=== PATIENT | male | born 1975 | race Caucasian/White ===

== ENCOUNTER 2019-07-11 09:11 | Inpatient (IN) | payer MEDICAID, OTHER ==
[~2019-07-11] VITALS: Ht 175.3 cm; Wt 59.4 kg
[2019-07-11 10:50] LABS: BG BASE EXCESS -0.3 mmol/L (-2.0-2.0); BG CARBOXYHEMOGLOBIN 0.3 % (0.5-1.5); BG DEOXYHEMOGLOBIN 1.5 % (0.0-5.0); BG FRACTION INSPIRED OXYGEN 100; BG HCO3 ACT 21.8 mmol/L (22.0-26.0); BG OXYGEN SATURATION 98.5 % (92.0-98.5); BG OXYHEMOGLOBIN 97.2 % (94.0-97.0); BG PCO2 29.3 mmHg (35.0-45.0); BG PO2 172.4 mmHg (75.0-100.0); BG SAMPLE SITE RIGHT BRACHIAL; BG TOTAL HEMOGLOBIN 14.4 g/dL (12.0-18.0); BG VENT MODE MASK - NRB
[2019-07-11] MEDS ORDERED: LEVOFLOXACIN 750MG PREMIX 150 ML IV ONE (11:30)
[2019-07-11 11:45] LABS: HEMATOCRIT. 42.1 % (42.0-52.0); HEMOGLOBIN. 14.5 g/dL (14.0-18.0); MEAN CORPUSCULAR HEMOGLOBIN 31.5 pg (28.0-32.0); MEAN CORPUSCULAR VOLUME 91.8 fL (80.0-94.0); MEAN PLATELET VOLUME 8.8 fl (7.4-10.4); PLATELET 413 x1000/uL (130-400); RED BLOOD CELL COUNT 4.59 mill/uL (4.7-6.1); RED CELL DISTRIBUTION WIDTH 13.6 % (11.6-14.6)
[2019-07-11 11:50] LABS: CHLORIDE 97 mEq/L (98-107)
[2019-07-11 11:57] LABS: CREATINE KINASE 209 IU/L (39-308)
[2019-07-11 12:00] LABS: D-DIMER 0.99 mg/L FEU (<0.50); PROTHROMBIN TIME 10.6 sec (9.6-11.0)
[2019-07-11 12:47] LABS: FIBRINOGEN > 999 mg/dL (200-400)
[2019-07-11] MEDS ORDERED: ACETAMINOPHEN 325MG TABLET PO ONE (13:00)
[2019-07-11 13:06] LABS: PLATELET ESTIMATE SLIGHTLY INCREASED
[2019-07-11 14:00] VITALS: BP 112/79
[2019-07-11 14:04] LABS: CLARITY URINE CLEAR (CLEAR); COLOR URINE DARK YELLOW (YELLOW); KETONES URINE 2+ (NEGATIVE); LEUKOCYTE ESTERASE URINE NEGATIVE (NEGATIVE); NITRITE URINE NEGATIVE (NEGATIVE); OCCULT BLOOD URINE NEGATIVE (NEGATIVE); PH URINE 6.5 (4.5-8.0); PROTEIN URINE 2+ (NEGATIVE); SPECIFIC GRAVITY URINE 1.031 (1.005-1.030)
[2019-07-11] MEDS ORDERED: VANCOMYCIN 1 G PREMIX 200 ML IV SCH (14:45)
[2019-07-11] MEDS ORDERED: ACETAMINOPHEN 650MG SUPP PR PRN (14:45)
[2019-07-11] MEDS ORDERED: CLONIDINE 0.1MG TABLET PO PRN (14:45)
[2019-07-11] MEDS ORDERED: DIPHENHYDRAMINE 50MG/ML VIAL IV PRN (14:45)
[2019-07-11] MEDS ORDERED: NA PHOS,M-B/NA PHOS,DI-BA ENEMA 118ML PR PRN (14:45)
[2019-07-11] MEDS ORDERED: MAGNESIUM/ALUMINUM HYDROXIDE/SIMETHICONE 30ML UDC PO PRN (14:45)
[2019-07-11] MEDS ORDERED: DOCUSATE SODIUM 100MG CAPSULE PO PRN (14:45)
[2019-07-11 16:00] VITALS: BP 112/79
[2019-07-11] MEDS ORDERED: ENOXAPARIN 40MG/0.4ML SYR SUBCUT SCH ×2 (16:00→21:00)
[2019-07-11] MEDS: VANCOMYCIN 1 G PREMIX 200 ML IV SCH (17:13)
[2019-07-11 17:18] VITALS: BP 112/79
[2019-07-11] MEDS: PIPERACILLIN/TAZOBACTAM 3.375 G in DEXT 5% WATER 100 ML IV SCH (17:55)
[2019-07-11 18:11] VITALS: BP 112/79
[2019-07-11] MEDS ORDERED: DEXTROSE 50% WATER 50ML SYRINGE IV PRN (18:45)
[2019-07-11 20:00] VITALS: BP 88/68
[2019-07-11] MEDS: INSULIN LISPRO 100 UNITS/ML SUBCUT SCH (20:45)
[2019-07-11] MEDS: BLOOD SUGAR DIAGNOSTIC STRIP TEST SCH (20:47)
[2019-07-11 21:21] LABS: BG BASE EXCESS -1.8 mmol/L (-2.0-2.0); BG CARBOXYHEMOGLOBIN 0.3 % (0.5-1.5); BG DEOXYHEMOGLOBIN 0.8 % (0.0-5.0); BG FRACTION INSPIRED OXYGEN 100; BG HCO3 ACT 20.6 mmol/L (22.0-26.0); BG OXYGEN SATURATION 99.2 % (92.0-98.5); BG OXYHEMOGLOBIN 98.9 % (94.0-97.0); BG PH 7.469 (7.350-7.450); BG PO2 245.1 mmHg (75.0-100.0); BG SAMPLE SITE LEFT BRACHIAL; BG TOTAL HEMOGLOBIN 14.4 g/dL (12.0-18.0); BG VENT MODE MASK - NRB
[2019-07-11] MEDS: ENOXAPARIN 60MG/0.6ML SYR SUBCUT SCH (22:39)
[2019-07-11] MEDS: SODIUM CHLORIDE 0.45% 1,000 ML IV SCH (22:39)
[2019-07-12] VITALS (16 sets, daily range): BP systolic 102–126; BP diastolic 59–87
[2019-07-12] MEDS: PIPERACILLIN/TAZOBACTAM 3.375 G in DEXT 5% WATER 100 ML IV SCH ×3 (00:34→16:45)
[2019-07-12] MEDS: ACETAMINOPHEN 325MG TABLET PO PRN (03:02)
[2019-07-12] MEDS: VANCOMYCIN 1 G PREMIX 200 ML IV SCH ×3 (03:02→23:00)
[2019-07-12] MEDS: MORPHINE SULFATE 2 MG/ML CPJ (NOT FOR IM USE) IV PRN (03:16)
[2019-07-12 05:02] LABS: HEMATOCRIT. 36.7 % (42.0-52.0); HEMOGLOBIN. 12.8 g/dL (14.0-18.0); MEAN CORPUSCULAR VOLUME 91.3 fL (80.0-94.0); MEAN PLATELET VOLUME 8.4 fl (7.4-10.4); PLATELET 446 x1000/uL (130-400); RED BLOOD CELL COUNT 4.02 mill/uL (4.7-6.1); RED CELL DISTRIBUTION WIDTH 13.7 % (11.6-14.6)
[2019-07-12 05:14] LABS: CHLORIDE 99 mEq/L (98-107)
[2019-07-12 05:19] LABS: LDL CHOLESTEROL 92 mg/dL (5-100)
[2019-07-12 05:21] LABS: HDL CHOLESTEROL 9 mg/dL (40-59)
[2019-07-12] MEDS: BLOOD SUGAR DIAGNOSTIC STRIP TEST SCH (06:26)
[2019-07-12] MEDS: INSULIN LISPRO 100 UNITS/ML SUBCUT SCH (06:26)
[2019-07-12 08:21] LABS: PLATELET ESTIMATE INCREASED
[2019-07-12 08:55] LABS: BG BASE EXCESS -3.1 mmol/L (-2.0-2.0); BG CARBOXYHEMOGLOBIN 0.5 % (0.5-1.5); BG DEOXYHEMOGLOBIN 11.7 % (0.0-5.0); BG FRACTION INSPIRED OXYGEN 68; BG HCO3 ACT 21.5 mmol/L (22.0-26.0); BG METHEMOGLOBIN 0.2 % (0.0-1.5); BG OXYGEN SATURATION 88.2 % (92.0-98.5); BG OXYHEMOGLOBIN 87.6 % (94.0-97.0); BG PCO2 37.1 mmHg (35.0-45.0); BG PH 7.381 (7.350-7.450); BG PO2 54.5 mmHg (75.0-100.0); BG SAMPLE SITE RIGHT RADIAL; BG TOTAL HEMOGLOBIN 13.4 g/dL (12.0-18.0); BG VENT MODE MASK - SIMPLE
[2019-07-12] MEDS ORDERED: POTASSIUM CHLORIDE INJ 40 MEQ in DEXT 5% WATER 500 ML IV NR (09:00)
[2019-07-12] MEDS: ENOXAPARIN 60MG/0.6ML SYR SUBCUT SCH ×2 (09:39→22:25)
[2019-07-12 09:50] LABS: *AMPHETAMINES SCREEN URINE NEGATIVE (NEGATIVE); CANNABINOID URINE SCREEN NEGATIVE (NEGATIVE); PHENCYCLIDINE URINE SCREEN NEGATIVE (NEGATIVE)
[2019-07-12 09:51] LABS: *BARBITURATES SCREEN URINE NEGATIVE (NEGATIVE); *BENZODIAZEPINES SCREEN URINE PRESUMTIVE POSITIVE (NEGATIVE); *COCAINE SCREEN URINE NEGATIVE (NEGATIVE); METHADONE URINE SCREEN NEGATIVE (NEGATIVE); OPIATES URINE SCREEN NEGATIVE (NEGATIVE)
[2019-07-12] MEDS: SODIUM CHLORIDE 0.45% 1,000 ML IV SCH (11:35)
[2019-07-12] MEDS: AZITHROMYCIN 500 MG TABLET PO SCH (12:38)
[2019-07-13] VITALS (7 sets, daily range): BP systolic 111–145; BP diastolic 67–89
[2019-07-13] MEDS: SODIUM CHLORIDE 0.45% 1,000 ML IV SCH (01:21)
[2019-07-13] MEDS: PIPERACILLIN/TAZOBACTAM 3.375 G in DEXT 5% WATER 100 ML IV SCH ×2 (01:44→08:28)
[2019-07-13] MEDS: ALBUTEROL 6.7GM HFA INHALER ORI PRN ×2 (05:14→11:38)
[2019-07-13 05:15] LABS: CHLORIDE 103 mEq/L (98-107)
[2019-07-13 05:22] LABS: VANCOMYCIN TROUGH 19.5 ug/mL (5.0-10.0)
[2019-07-13] MEDS: VANCOMYCIN 1 G PREMIX 200 ML IV SCH ×2 (06:23→14:46)
[2019-07-13] MEDS: AZITHROMYCIN 500 MG TABLET PO SCH (08:29)
[2019-07-13] MEDS: ENOXAPARIN 60MG/0.6ML SYR SUBCUT SCH (08:29)
[2019-07-13] MEDS ORDERED: POTASSIUM CHLORIDE 20MEQ TABLET SR PO PRN (11:45)
[2019-07-13] MEDS: HYDROCODONE/ACETAMINOPHEN 5/325MG TABLET PO PRN (14:50)
[2019-07-13] MEDS ORDERED: PIPERACILLIN/TAZOBACTAM 3.375 G in DEXT 5% WATER 100 ML IV SCH (15:00)
[2019-07-13] MEDS: LORAZEPAM 2MG/ML CPJ IV PRN ×2 (18:06→22:17)
[2019-07-13] MEDS: ACETAMINOPHEN 325MG TABLET PO PRN ×2 (18:06→22:17)
[2019-07-13] MEDS: ALBUTEROL 6.7GM HFA INHALER ORI SCH (18:19)
[2019-07-13] MEDS: CEFTRIAXONE 1 G PREMIX 50 ML IV SCH (20:42)
[2019-07-13] MEDS: ENOXAPARIN 80MG/0.8ML SYR SUBCUT SCH (20:42)
[2019-07-14] VITALS (68 sets, daily range): BP systolic 111–179; BP diastolic 43–106
[2019-07-14 00:24] LABS: BG BASE EXCESS -2.2 mmol/L (-2.0-2.0); BG CARBOXYHEMOGLOBIN 0.6 % (0.5-1.5); BG DEOXYHEMOGLOBIN 7.9 % (0.0-5.0); BG FRACTION INSPIRED OXYGEN 100; BG HCO3 ACT 21.1 mmol/L (22.0-26.0); BG METHEMOGLOBIN 0.1 % (0.0-1.5); BG OXYHEMOGLOBIN 91.4 % (94.0-97.0); BG PCO2 32.5 mmHg (35.0-45.0); BG PO2 66.1 mmHg (75.0-100.0); BG SAMPLE SITE RIGHT RADIAL; BG VENT MODE MASK - NRB
[2019-07-14] MEDS: ALBUTEROL 6.7GM HFA INHALER ORI SCH ×4 (00:37→21:30)
[2019-07-14] MEDS: AZITHROMYCIN 500 MG TABLET PO SCH (08:21)
[2019-07-14] MEDS: METHYLPREDNISOLONE SOD SUCC 40 MG/ML VIAL IV SCH ×2 (08:21→16:07)
[2019-07-14] MEDS: MORPHINE SULFATE 2 MG/ML CPJ (NOT FOR IM USE) IV PRN (08:32)
[2019-07-14] MEDS: ENOXAPARIN 80MG/0.8ML SYR SUBCUT SCH ×2 (09:24→20:54)
[2019-07-14] MEDS: ACETAMINOPHEN 325MG TABLET PO PRN (13:21)
[2019-07-14] MEDS ORDERED: REMDESIVIR 200 MG in SODIUM CHLORIDE 0.9% 250 ML IV NR (14:00)
[2019-07-14] MEDS: CEFTRIAXONE 1 G PREMIX 50 ML IV SCH (20:54)
[2019-07-15] VITALS (38 sets, daily range): BP systolic 102–162; BP diastolic 48–91
[2019-07-15] MEDS: GUAIFENESIN 200MG/10ML SUGAR FREE UDC PO PRN (01:40)
[2019-07-15] MEDS: ALBUTEROL 6.7GM HFA INHALER ORI SCH ×3 (03:30→15:59)
[2019-07-15 05:49] LABS: HEMOGLOBIN. 13.1 g/dL (14.0-18.0); MEAN CORPUSCULAR HEMOGLOBIN 31.8 pg (28.0-32.0); MEAN CORPUSCULAR VOLUME 92.2 fL (80.0-94.0); MEAN PLATELET VOLUME 8.4 fl (7.4-10.4); PLATELET 358 x1000/uL (130-400); RED BLOOD CELL COUNT 4.12 mill/uL (4.7-6.1); RED CELL DISTRIBUTION WIDTH 13.8 % (11.6-14.6)
[2019-07-15 06:01] LABS: CHLORIDE 107 mEq/L (98-107)
[2019-07-15] MEDS: METHYLPREDNISOLONE SOD SUCC 40 MG/ML VIAL IV SCH ×2 (08:14→18:48)
[2019-07-15] MEDS: ENOXAPARIN 80MG/0.8ML SYR SUBCUT SCH ×2 (08:15→20:44)
[2019-07-15] MEDS: AZITHROMYCIN 500 MG TABLET PO SCH (08:17)
[2019-07-15 08:52] LABS: PLATELET ESTIMATE NORMAL
[2019-07-15 10:55] LABS: BG BASE EXCESS -0.9 mmol/L (-2.0-2.0); BG CARBOXYHEMOGLOBIN 0.7 % (0.5-1.5); BG DEOXYHEMOGLOBIN 9.2 % (0.0-5.0); BG FRACTION INSPIRED OXYGEN 100; BG HCO3 ACT 22.6 mmol/L (22.0-26.0); BG METHEMOGLOBIN 0.3 % (0.0-1.5); BG OXYGEN SATURATION 90.7 % (92.0-98.5); BG OXYHEMOGLOBIN 89.8 % (94.0-97.0); BG PH 7.441 (7.350-7.450); BG PO2 58.1 mmHg (75.0-100.0); BG SAMPLE SITE RIGHT RADIAL; BG TOTAL HEMOGLOBIN 13.6 g/dL (12.0-18.0); BG VENT MODE MASK - NRB
[2019-07-15] MEDS: REMDESIVIR 100 MG in SODIUM CHLORIDE 0.9% 250 ML IV SCH (13:23)
[2019-07-15] MEDS: HYDROCODONE/ACETAMINOPHEN 5/325MG TABLET PO PRN (13:51)
[2019-07-15] MEDS: CEFTRIAXONE 1 G PREMIX 50 ML IV SCH (20:43)
[2019-07-16] VITALS (44 sets, daily range): BP systolic 99–143; BP diastolic 50–83
[2019-07-16 05:11] LABS: CHLORIDE 108 mEq/L (98-107)
[2019-07-16] MEDS: AZITHROMYCIN 500 MG TABLET PO SCH (08:53)
[2019-07-16] MEDS: ENOXAPARIN 80MG/0.8ML SYR SUBCUT SCH ×2 (08:53→20:22)
[2019-07-16] MEDS: METHYLPREDNISOLONE SOD SUCC 40 MG/ML VIAL IV SCH ×2 (08:54→17:06)
[2019-07-16] MEDS: ALBUTEROL 6.7GM HFA INHALER ORI SCH ×3 (09:10→21:15)
[2019-07-16] MEDS: REMDESIVIR 100 MG in SODIUM CHLORIDE 0.9% 250 ML IV SCH (13:39)
[2019-07-16] MEDS: CEFTRIAXONE 1 G PREMIX 50 ML IV SCH (20:22)
[2019-07-16] MEDS: HYDROCODONE/ACETAMINOPHEN 5/325MG TABLET PO PRN (20:33)
[2019-07-17] VITALS (35 sets, daily range): BP systolic 99–158; BP diastolic 52–131
[2019-07-17] MEDS: ALBUTEROL 6.7GM HFA INHALER ORI SCH ×6 (00:25→20:43)
[2019-07-17 05:36] LABS: CHLORIDE 107 mEq/L (98-107)
[2019-07-17] MEDS: LORAZEPAM 2MG/ML CPJ IV PRN (06:07)
[2019-07-17] MEDS: GUAIFENESIN 200MG/10ML SUGAR FREE UDC PO PRN (06:13)
[2019-07-17 08:04] LABS: BG BASE EXCESS -0.6 mmol/L (-2.0-2.0); BG CARBOXYHEMOGLOBIN 0.2 % (0.5-1.5); BG DEOXYHEMOGLOBIN 10.5 % (0.0-5.0); BG FRACTION INSPIRED OXYGEN 100; BG OXYGEN SATURATION 89.5 % (92.0-98.5); BG OXYHEMOGLOBIN 89.3 % (94.0-97.0); BG PCO2 39.2 mmHg (35.0-45.0); BG PH 7.404 (7.350-7.450); BG PO2 59.1 mmHg (75.0-100.0); BG SAMPLE SITE RIGHT RADIAL; BG TOTAL HEMOGLOBIN 14.3 g/dL (12.0-18.0); BG VENT MODE MASK - NRB
[2019-07-17] MEDS: ENOXAPARIN 80MG/0.8ML SYR SUBCUT SCH ×2 (08:25→20:07)
[2019-07-17] MEDS: METHYLPREDNISOLONE SOD SUCC 40 MG/ML VIAL IV SCH ×2 (08:25→17:36)
[2019-07-17] MEDS: REMDESIVIR 100 MG in SODIUM CHLORIDE 0.9% 250 ML IV SCH (13:59)
[2019-07-17] MEDS: GUAIFENESIN-DM 200MG-20MG/10ML UDC PO PRN ×2 (14:46→22:12)
[2019-07-17] MEDS: CEFTRIAXONE 1 G PREMIX 50 ML IV SCH (20:07)
[2019-07-17] MEDS: HYDROCODONE/ACETAMINOPHEN 5/325MG TABLET PO PRN (22:13)
[2019-07-18] VITALS (23 sets, daily range): BP systolic 95–133; BP diastolic 50–95
[2019-07-18] MEDS: LORAZEPAM 2MG/ML CPJ IV PRN (00:44)
[2019-07-18] MEDS: ALBUTEROL 6.7GM HFA INHALER ORI SCH ×6 (00:55→20:40)
[2019-07-18] MEDS: GUAIFENESIN-DM 200MG-20MG/10ML UDC PO PRN ×3 (05:58→17:10)
[2019-07-18] MEDS: HYDROCODONE/ACETAMINOPHEN 5/325MG TABLET PO PRN (05:59)
[2019-07-18 06:02] LABS: CHLORIDE 104 mEq/L (98-107)
[2019-07-18 08:26] LABS: BG BASE EXCESS 2.9 mmol/L (-2.0-2.0); BG CARBOXYHEMOGLOBIN 0.3 % (0.5-1.5); BG DEOXYHEMOGLOBIN 9.3 % (0.0-5.0); BG HCO3 ACT 27.2 mmol/L (22.0-26.0); BG METHEMOGLOBIN 0.3 % (0.0-1.5); BG OXYGEN SATURATION 90.6 % (92.0-98.5); BG OXYHEMOGLOBIN 90.1 % (94.0-97.0); BG PCO2 40.9 mmHg (35.0-45.0); BG PH 7.441 (7.350-7.450); BG PO2 60.7 mmHg (75.0-100.0); BG SAMPLE SITE RIGHT RADIAL; BG TOTAL HEMOGLOBIN 14.1 g/dL (12.0-18.0); BG VENT MODE MASK - NRB
[2019-07-18] MEDS: METHYLPREDNISOLONE SOD SUCC 40 MG/ML VIAL IV SCH ×2 (09:51→17:10)
[2019-07-18] MEDS: ENOXAPARIN 80MG/0.8ML SYR SUBCUT SCH ×2 (09:52→20:51)
[2019-07-18] MEDS: ACETAMINOPHEN 325MG TABLET PO PRN ×2 (13:04→18:42)
[2019-07-18] MEDS: REMDESIVIR 100 MG in SODIUM CHLORIDE 0.9% 250 ML IV SCH (14:44)
[2019-07-18] MEDS ORDERED: SODIUM CHLORIDE 45ML SPRAY NS PRN (17:30)
[2019-07-19] VITALS (19 sets, daily range): BP systolic 92–133; BP diastolic 55–78
[2019-07-19] MEDS: ALBUTEROL 6.7GM HFA INHALER ORI SCH ×6 (00:50→20:14)
[2019-07-19 05:40] LABS: HEMATOCRIT. 41.9 % (42.0-52.0); HEMOGLOBIN. 14.2 g/dL (14.0-18.0); MEAN CORPUSCULAR HEMOGLOBIN 31.4 pg (28.0-32.0); MEAN CORPUSCULAR VOLUME 92.9 fL (80.0-94.0); MEAN PLATELET VOLUME 8.9 fl (7.4-10.4); PLATELET 450 x1000/uL (130-400); RED BLOOD CELL COUNT 4.51 mill/uL (4.7-6.1)
[2019-07-19] MEDS: GUAIFENESIN-DM 200MG-20MG/10ML UDC PO PRN ×4 (05:46→22:29)
[2019-07-19 05:54] LABS: CHLORIDE 105 mEq/L (98-107)
[2019-07-19] MEDS: HYDROCODONE/ACETAMINOPHEN 5/325MG TABLET PO PRN (06:16)
[2019-07-19 07:54] LABS: BG BASE EXCESS 0.8 mmol/L (-2.0-2.0); BG CARBOXYHEMOGLOBIN 0.8 % (0.5-1.5); BG HCO3 ACT 24.9 mmol/L (22.0-26.0); BG METHEMOGLOBIN 0.2 % (0.0-1.5); BG OXYGEN SATURATION 89.9 % (92.0-98.5); BG PCO2 38.2 mmHg (35.0-45.0); BG PH 7.432 (7.350-7.450); BG PO2 58.8 mmHg (75.0-100.0); BG SAMPLE SITE RIGHT RADIAL; BG TOTAL HEMOGLOBIN 15.1 g/dL (12.0-18.0); BG VENT MODE MASK - NRB
[2019-07-19] MEDS: METHYLPREDNISOLONE SOD SUCC 40 MG/ML VIAL IV SCH ×2 (09:21→16:47)
[2019-07-19] MEDS: ENOXAPARIN 80MG/0.8ML SYR SUBCUT SCH (09:22)
[2019-07-19 10:06] LABS: PLATELET ESTIMATE SLIGHTLY INCREASED
[2019-07-19] MEDS: ENOXAPARIN 60MG/0.6ML SYR SUBCUT SCH (20:28)
[2019-07-20] VITALS (22 sets, daily range): BP systolic 91–128; BP diastolic 31–71
[2019-07-20] MEDS: ALBUTEROL 6.7GM HFA INHALER ORI SCH ×6 (00:05→21:55)
[2019-07-20] MEDS: GUAIFENESIN-DM 200MG-20MG/10ML UDC PO PRN ×2 (03:05→07:31)
[2019-07-20] MEDS: HYDROCODONE/ACETAMINOPHEN 5/325MG TABLET PO PRN ×3 (03:05→20:58)
[2019-07-20] MEDS: METHYLPREDNISOLONE SOD SUCC 40 MG/ML VIAL IV SCH ×2 (08:27→17:00)
[2019-07-20] MEDS: ENOXAPARIN 60MG/0.6ML SYR SUBCUT SCH ×2 (08:27→20:58)
[2019-07-20 09:38] LABS: BG BASE EXCESS -0.6 mmol/L (-2.0-2.0); BG CARBOXYHEMOGLOBIN 0.8 % (0.5-1.5); BG DEOXYHEMOGLOBIN 7.7 % (0.0-5.0); BG FRACTION INSPIRED OXYGEN 99.8; BG HCO3 ACT 23.3 mmol/L (22.0-26.0); BG METHEMOGLOBIN 0.2 % (0.0-1.5); BG OXYGEN SATURATION 92.2 % (92.0-98.5); BG OXYHEMOGLOBIN 91.3 % (94.0-97.0); BG PCO2 36.3 mmHg (35.0-45.0); BG PH 7.425 (7.350-7.450); BG PO2 65.6 mmHg (75.0-100.0); BG SAMPLE SITE RIGHT RADIAL; BG TOTAL HEMOGLOBIN 15.9 g/dL (12.0-18.0); BG VENT MODE MASK - NRB
[2019-07-21] VITALS (20 sets, daily range): BP systolic 96–126; BP diastolic 49–83
[2019-07-21] MEDS: ALBUTEROL 6.7GM HFA INHALER ORI SCH ×6 (00:10→20:15)
[2019-07-21] MEDS: GUAIFENESIN-DM 200MG-20MG/10ML UDC PO PRN ×2 (05:23→21:03)
[2019-07-21] MEDS: HYDROCODONE/ACETAMINOPHEN 5/325MG TABLET PO PRN ×2 (05:23→21:03)
[2019-07-21] MEDS: ENOXAPARIN 60MG/0.6ML SYR SUBCUT SCH ×2 (08:37→20:40)
[2019-07-21] MEDS: METHYLPREDNISOLONE SOD SUCC 40 MG/ML VIAL IV SCH ×2 (08:37→17:53)
[2019-07-22] VITALS (21 sets, daily range): BP systolic 93–155; BP diastolic 33–102
[2019-07-22] MEDS: ALBUTEROL 6.7GM HFA INHALER ORI SCH ×6 (00:55→21:15)
[2019-07-22] MEDS: ENOXAPARIN 60MG/0.6ML SYR SUBCUT SCH ×2 (08:37→20:47)
[2019-07-22] MEDS: METHYLPREDNISOLONE SOD SUCC 40 MG/ML VIAL IV SCH (08:37)
[2019-07-22 11:44] LABS: BG CARBOXYHEMOGLOBIN 0.9 % (0.5-1.5); BG DEOXYHEMOGLOBIN 10.5 % (0.0-5.0); BG FRACTION INSPIRED OXYGEN 99.8; BG HCO3 ACT 27.7 mmol/L (22.0-26.0); BG METHEMOGLOBIN 0.3 % (0.0-1.5); BG OXYGEN SATURATION 89.4 % (92.0-98.5); BG OXYHEMOGLOBIN 88.3 % (94.0-97.0); BG PCO2 42.8 mmHg (35.0-45.0); BG PH 7.429 (7.350-7.450); BG PO2 55.5 mmHg (75.0-100.0); BG SAMPLE SITE RIGHT RADIAL; BG TOTAL HEMOGLOBIN 15.5 g/dL (12.0-18.0); BG VENT MODE MASK - NRB
[2019-07-22] MEDS: GUAIFENESIN-DM 200MG-20MG/10ML UDC PO PRN (20:47)
[2019-07-22] MEDS: HYDROCODONE/ACETAMINOPHEN 5/325MG TABLET PO PRN (20:47)
[2019-07-23] VITALS (20 sets, daily range): BP systolic 94–134; BP diastolic 47–99
[2019-07-23] MEDS: ALBUTEROL 6.7GM HFA INHALER ORI SCH ×4 (00:55→21:00)
[2019-07-23] MEDS: ENOXAPARIN 60MG/0.6ML SYR SUBCUT SCH ×2 (10:42→20:03)
[2019-07-23] MEDS: METHYLPREDNISOLONE SOD SUCC 40 MG/ML VIAL IV SCH (10:47)
[2019-07-23] MEDS: GUAIFENESIN-DM 200MG-20MG/10ML UDC PO PRN (20:02)
[2019-07-23] MEDS: HYDROCODONE/ACETAMINOPHEN 5/325MG TABLET PO PRN (20:03)
[2019-07-24] VITALS (52 sets, daily range): BP systolic 73–159; BP diastolic 26–116
[2019-07-24] MEDS: ALBUTEROL 6.7GM HFA INHALER ORI SCH ×5 (00:10→20:00)
[2019-07-24] MEDS: GUAIFENESIN-DM 200MG-20MG/10ML UDC PO PRN (06:43)
[2019-07-24] MEDS ORDERED: PHENYLEPHRINE 40 MG in DEXT 5% WATER 246 ML IV PRN (09:30)
[2019-07-24] MEDS: METHYLPREDNISOLONE SOD SUCC 40 MG/ML VIAL IV SCH (09:37)
[2019-07-24] MEDS: ENOXAPARIN 60MG/0.6ML SYR SUBCUT SCH ×2 (09:38→21:38)
[2019-07-24] MEDS: PANTOPRAZOLE SODIUM 40 MG/VIAL IV SCH (10:30)
[2019-07-24] MEDS ORDERED: NOREPINEPHRINE 32 MG in DEXT 5% WATER 468 ML IV PRN (10:30)
[2019-07-24] MEDS: MIDAZOLAM HCL 100 MG in DEXT 5% WATER 80 ML IV PRN ×2 (11:16→17:02)
[2019-07-24] MEDS: FENTANYL CITRATE/PF 1,000 MCG in SODIUM CHLORIDE 0.9% 80 ML IV PRN ×2 (11:17→15:27)
[2019-07-24 11:57] LABS: BG BASE EXCESS 3.9 mmol/L (-2.0-2.0); BG CARBOXYHEMOGLOBIN 0.6 % (0.5-1.5); BG DEOXYHEMOGLOBIN 7.3 % (0.0-5.0); BG FRACTION INSPIRED OXYGEN 100; BG HCO3 ACT 31.3 mmol/L (22.0-26.0); BG METHEMOGLOBIN 0.4 % (0.0-1.5); BG OXYGEN SATURATION 92.6 % (92.0-98.5); BG OXYHEMOGLOBIN 91.7 % (94.0-97.0); BG PCO2 57.4 mmHg (35.0-45.0); BG PH 7.355 (7.350-7.450); BG PO2 70.4 mmHg (75.0-100.0); BG SAMPLE SITE RIGHT RADIAL; BG TIDAL VOLUME(mL) 450 mL; BG TOTAL HEMOGLOBIN 16.8 g/dL (12.0-18.0); BG VENT MODE VENT - A/C; BG VENT RATE 18 set
[2019-07-24] MEDS: LORAZEPAM 2MG/ML CPJ IV PRN (12:47)
[2019-07-24 13:07] LABS: CHLORIDE 99 mEq/L (98-107)
[2019-07-24 13:12] LABS: PHOSPHORUS 5.8 mg/dL (2.5-4.9)
[2019-07-24] MEDS ORDERED: LIDOCAINE HCL 1% 20ML VIAL (Pyxis) INJ ONE (13:12)
[2019-07-24 13:14] LABS: HEMATOCRIT. 46.7 % (42.0-52.0); MEAN CORPUSCULAR VOLUME 93.3 fL (80.0-94.0); MEAN PLATELET VOLUME 9.1 fl (7.4-10.4); PLATELET 615 x1000/uL (130-400); RED BLOOD CELL COUNT 5.01 mill/uL (4.7-6.1)
[2019-07-24 13:39] LABS: PLATELET ESTIMATE INCREASED
[2019-07-24] MEDS ORDERED: MAGNESIUM 4 G PREMIX 100 ML IV NR (18:00)
[2019-07-25] VITALS (87 sets, daily range): BP systolic 73–140; BP diastolic 39–74
[2019-07-25] MEDS: ALBUTEROL 6.7GM HFA INHALER ORI SCH ×7 (00:30→20:30)
[2019-07-25] MEDS: FENTANYL CITRATE/PF 1,000 MCG in SODIUM CHLORIDE 0.9% 80 ML IV PRN ×3 (00:44→23:57)
[2019-07-25 08:31] LABS: BG BASE EXCESS 2.5 mmol/L (-2.0-2.0); BG CARBOXYHEMOGLOBIN 0.5 % (0.5-1.5); BG FRACTION INSPIRED OXYGEN 100; BG HCO3 ACT 28.2 mmol/L (22.0-26.0); BG METHEMOGLOBIN 0.6 % (0.0-1.5); BG OXYHEMOGLOBIN 97.9 % (94.0-97.0); BG PCO2 46.6 mmHg (35.0-45.0); BG PH 7.399 (7.350-7.450); BG PO2 146.3 mmHg (75.0-100.0); BG SAMPLE SITE RIGHT RADIAL; BG TIDAL VOLUME(mL) 450 mL; BG TOTAL HEMOGLOBIN 16.6 g/dL (12.0-18.0); BG VENT MODE VENT - A/C; BG VENT RATE 18 set
[2019-07-25] MEDS: MIDAZOLAM HCL 100 MG in DEXT 5% WATER 80 ML IV PRN (08:59)
[2019-07-25] MEDS: METHYLPREDNISOLONE SOD SUCC 40 MG/ML VIAL IV SCH (09:52)
[2019-07-25] MEDS: PANTOPRAZOLE SODIUM 40 MG/VIAL IV SCH (09:52)
[2019-07-25] MEDS: ENOXAPARIN 60MG/0.6ML SYR SUBCUT SCH ×2 (09:53→21:14)
[2019-07-25] MEDS: CEFEPIME 1,000 MG in DEXTROSE 5% WATER 50 ML IV SCH (15:35)
[2019-07-26] VITALS (47 sets, daily range): BP systolic 88–176; BP diastolic 6–99
[2019-07-26] MEDS: ALBUTEROL 6.7GM HFA INHALER ORI SCH ×2 (00:50→04:30)
[2019-07-26] MEDS: CEFEPIME 1,000 MG in DEXTROSE 5% WATER 50 ML IV SCH ×2 (03:14→14:37)
[2019-07-26 05:25] LABS: HEMATOCRIT. 41.6 % (42.0-52.0); MEAN CORPUSCULAR HEMOGLOBIN 31.5 pg (28.0-32.0); MEAN CORPUSCULAR VOLUME 93.7 fL (80.0-94.0); MEAN PLATELET VOLUME 9.2 fl (7.4-10.4); PLATELET 459 x1000/uL (130-400); RED BLOOD CELL COUNT 4.44 mill/uL (4.7-6.1); RED CELL DISTRIBUTION WIDTH 13.8 % (11.6-14.6)
[2019-07-26 05:32] LABS: CHLORIDE 100 mEq/L (98-107)
[2019-07-26 05:40] LABS: PHOSPHORUS 3.3 mg/dL (2.5-4.9)
[2019-07-26 08:11] LABS: BG BASE EXCESS 5.8 mmol/L (-2.0-2.0); BG CARBOXYHEMOGLOBIN 1.1 % (0.5-1.5); BG DEOXYHEMOGLOBIN 3.4 % (0.0-5.0); BG FRACTION INSPIRED OXYGEN 70; BG HCO3 ACT 33.1 mmol/L (22.0-26.0); BG METHEMOGLOBIN 0.4 % (0.0-1.5); BG OXYGEN SATURATION 96.5 % (92.0-98.5); BG OXYHEMOGLOBIN 95.1 % (94.0-97.0); BG PCO2 58.5 mmHg (35.0-45.0); BG PO2 85.4 mmHg (75.0-100.0); BG SAMPLE SITE RIGHT RADIAL; BG TIDAL VOLUME(mL) 450 mL; BG TOTAL HEMOGLOBIN 14.9 g/dL (12.0-18.0); BG VENT MODE VENT - A/C; BG VENT RATE 18 set
[2019-07-26] MEDS: PANTOPRAZOLE SODIUM 40 MG/VIAL IV SCH (09:21)
[2019-07-26] MEDS: ENOXAPARIN 60MG/0.6ML SYR SUBCUT SCH ×2 (09:21→21:27)
[2019-07-26 09:33] LABS: PLATELET ESTIMATE SLIGHTLY INCREASED
[2019-07-26] MEDS: ACETAMINOPHEN 650MG/20.3ML UDC GT PRN (14:38)
[2019-07-26] MEDS ORDERED: AMIODARONE HCL 900 MG in DEXT 5% WATER 482 ML IV SCH (15:00)
[2019-07-26] MEDS ORDERED: DEXTROSE 50% WATER 50ML SYRINGE IV ONE (15:47)
[2019-07-26 21:43] LABS: BG BASE EXCESS 5.2 mmol/L (-2.0-2.0); BG FRACTION INSPIRED OXYGEN 70; BG HCO3 ACT 32.7 mmol/L (22.0-26.0); BG METHEMOGLOBIN 0.4 % (0.0-1.5); BG OXYHEMOGLOBIN 97.6 % (94.0-97.0); BG PCO2 60.4 mmHg (35.0-45.0); BG PH 7.351 (7.350-7.450); BG PO2 153.3 mmHg (75.0-100.0); BG SAMPLE SITE RIGHT RADIAL; BG TIDAL VOLUME(mL) 450 mL; BG TOTAL HEMOGLOBIN 14.4 g/dL (12.0-18.0); BG VENT MODE PRVC/AC; BG VENT RATE 18 set
[2019-07-27] VITALS (97 sets, daily range): BP systolic 77–174; BP diastolic 38–94
[2019-07-27] MEDS: MIDAZOLAM HCL 100 MG in DEXT 5% WATER 80 ML IV PRN ×2 (04:22→14:20)
[2019-07-27] MEDS: CEFEPIME 1,000 MG in DEXTROSE 5% WATER 50 ML IV SCH ×2 (04:36→15:49)
[2019-07-27] MEDS: FENTANYL CITRATE/PF 1,000 MCG in SODIUM CHLORIDE 0.9% 80 ML IV PRN ×2 (07:04→15:51)
[2019-07-27] MEDS: ENOXAPARIN 60MG/0.6ML SYR SUBCUT SCH ×2 (09:00→20:52)
[2019-07-27] MEDS: PANTOPRAZOLE SODIUM 40 MG/VIAL IV SCH (09:00)
[2019-07-27] MEDS: ALBUTEROL 6.7GM HFA INHALER ORI SCH ×5 (09:05→21:15)
[2019-07-27 09:13] LABS: BG BASE EXCESS 6.7 mmol/L (-2.0-2.0); BG CARBOXYHEMOGLOBIN 0.8 % (0.5-1.5); BG DEOXYHEMOGLOBIN 2.5 % (0.0-5.0); BG FRACTION INSPIRED OXYGEN 60; BG HCO3 ACT 33.2 mmol/L (22.0-26.0); BG METHEMOGLOBIN 0.5 % (0.0-1.5); BG OXYGEN SATURATION 97.5 % (92.0-98.5); BG OXYHEMOGLOBIN 96.2 % (94.0-97.0); BG PCO2 54.8 mmHg (35.0-45.0); BG SAMPLE SITE RIGHT RADIAL; BG TIDAL VOLUME(mL) 450 mL; BG TOTAL HEMOGLOBIN 14.2 g/dL (12.0-18.0); BG VENT MODE VENT- PRVC; BG VENT RATE 20 set
[2019-07-27] MEDS ORDERED: PHENYLEPHRINE 10 MG in DEXT 5% WATER 249 ML IV PRN (10:45)
[2019-07-27] MEDS: ACETAMINOPHEN 650MG/20.3ML UDC GT PRN ×2 (10:55→21:15)
[2019-07-27 11:30] LABS: HEMATOCRIT. 41.8 % (42.0-52.0); MEAN CORPUSCULAR HEMOGLOBIN 31.3 pg (28.0-32.0); MEAN CORPUSCULAR VOLUME 93.4 fL (80.0-94.0); MEAN PLATELET VOLUME 8.5 fl (7.4-10.4); PLATELET 355 x1000/uL (130-400); RED BLOOD CELL COUNT 4.48 mill/uL (4.7-6.1); RED CELL DISTRIBUTION WIDTH 13.8 % (11.6-14.6)
[2019-07-27 11:39] LABS: CHLORIDE 100 mEq/L (98-107)
[2019-07-27 13:33] LABS: PLATELET ESTIMATE NORMAL
[2019-07-28] VITALS (94 sets, daily range): BP systolic 64–154; BP diastolic 41–90
[2019-07-28] MEDS: FENTANYL CITRATE/PF 1,000 MCG in SODIUM CHLORIDE 0.9% 80 ML IV PRN ×3 (00:42→14:09)
[2019-07-28] MEDS: MIDAZOLAM HCL 100 MG in DEXT 5% WATER 80 ML IV PRN ×2 (00:46→13:47)
[2019-07-28] MEDS: ALBUTEROL 6.7GM HFA INHALER ORI SCH ×6 (00:57→20:30)
[2019-07-28] MEDS: CEFEPIME 1,000 MG in DEXTROSE 5% WATER 50 ML IV SCH ×2 (02:37→15:57)
[2019-07-28 08:32] LABS: BG BASE EXCESS 3.8 mmol/L (-2.0-2.0); BG CARBOXYHEMOGLOBIN 1.5 % (0.5-1.5); BG DEOXYHEMOGLOBIN 5.9 % (0.0-5.0); BG FRACTION INSPIRED OXYGEN 60; BG HCO3 ACT 31.7 mmol/L (22.0-26.0); BG METHEMOGLOBIN 0.3 % (0.0-1.5); BG OXYHEMOGLOBIN 92.3 % (94.0-97.0); BG PCO2 63.2 mmHg (35.0-45.0); BG PH 7.318 (7.350-7.450); BG PO2 77.4 mmHg (75.0-100.0); BG SAMPLE SITE RIGHT RADIAL; BG TIDAL VOLUME(mL) 450 mL; BG TOTAL HEMOGLOBIN 13.7 g/dL (12.0-18.0); BG VENT MODE VENT- PRVC; BG VENT RATE 20 set
[2019-07-28] MEDS: LORAZEPAM 2MG/ML CPJ IV PRN (08:34)
[2019-07-28 09:49] LABS: HEMATOCRIT. 40.3 % (42.0-52.0); HEMOGLOBIN. 13.3 g/dL (14.0-18.0); MEAN CORPUSCULAR VOLUME 93.7 fL (80.0-94.0); MEAN PLATELET VOLUME 8.5 fl (7.4-10.4); PLATELET 312 x1000/uL (130-400); RED CELL DISTRIBUTION WIDTH 13.6 % (11.6-14.6)
[2019-07-28 09:56] LABS: CHLORIDE 98 mEq/L (98-107)
[2019-07-28] MEDS: DOCUSATE SODIUM SUGAR FREE 100MG/10ML UDC NG SCH (10:17)
[2019-07-28] MEDS: ACETAMINOPHEN 650MG/20.3ML UDC GT PRN ×2 (10:17→17:57)
[2019-07-28] MEDS: FOLIC ACID 1MG TABLET PO SCH (10:17)
[2019-07-28] MEDS: THIAMINE HCL 100MG TABLET PO SCH (10:18)
[2019-07-28] MEDS: PANTOPRAZOLE SODIUM 40 MG/VIAL IV SCH (10:18)
[2019-07-28] MEDS: ENOXAPARIN 60MG/0.6ML SYR SUBCUT SCH ×2 (10:18→21:01)
[2019-07-28] MEDS: MIDODRINE HCL 5MG TABLET PO SCH ×3 (10:22→17:19)
[2019-07-28] MEDS ORDERED: METOPROLOL TARTRATE 25MG TABLET PO SCH (11:00)
[2019-07-28 11:32] LABS: PLATELET ESTIMATE NORMAL
[2019-07-28] MEDS: PROPOFOL 10MG/ML 100ML 100 ML IV PRN (17:58)
[2019-07-28] MEDS: PHENYLEPHRINE 40 MG in DEXT 5% WATER 496 ML IV PRN (19:35)
[2019-07-28] MEDS: METOPROLOL TARTRATE 25MG TABLET PO SCH (21:01)
[2019-07-29] VITALS (91 sets, daily range): BP systolic 71–190; BP diastolic 39–116
[2019-07-29] MEDS: ALBUTEROL 6.7GM HFA INHALER ORI SCH ×7 (00:20→23:55)
[2019-07-29] MEDS: PROPOFOL 10MG/ML 100ML 100 ML IV PRN ×4 (00:39→17:46)
[2019-07-29] MEDS: CEFEPIME 1,000 MG in DEXTROSE 5% WATER 50 ML IV SCH ×2 (04:08→14:07)
[2019-07-29] MEDS: PHENYLEPHRINE 40 MG in DEXT 5% WATER 496 ML IV PRN (05:54)
[2019-07-29] MEDS: MIDAZOLAM HCL 100 MG in DEXT 5% WATER 80 ML IV PRN (06:02)
[2019-07-29] MEDS: METOPROLOL TARTRATE 25MG TABLET PO SCH (09:00)
[2019-07-29 09:12] LABS: BG BASE EXCESS 6.6 mmol/L (-2.0-2.0); BG CARBOXYHEMOGLOBIN 0.9 % (0.5-1.5); BG FRACTION INSPIRED OXYGEN 60; BG HCO3 ACT 32.7 mmol/L (22.0-26.0); BG METHEMOGLOBIN 0.2 % (0.0-1.5); BG OXYHEMOGLOBIN 95.9 % (94.0-97.0); BG PCO2 53.5 mmHg (35.0-45.0); BG PH 7.404 (7.350-7.450); BG PO2 82.5 mmHg (75.0-100.0); BG SAMPLE SITE RIGHT RADIAL; BG TIDAL VOLUME(mL) 450 mL; BG TOTAL HEMOGLOBIN 12.6 g/dL (12.0-18.0); BG VENT MODE VENT- PRVC; BG VENT RATE 24 set
[2019-07-29] MEDS: PANTOPRAZOLE SODIUM 40 MG/VIAL IV SCH (10:26)
[2019-07-29] MEDS: DOCUSATE SODIUM SUGAR FREE 100MG/10ML UDC NG SCH (10:27)
[2019-07-29] MEDS: MIDODRINE HCL 5MG TABLET PO SCH ×2 (10:28→17:48)
[2019-07-29] MEDS: FOLIC ACID 1MG TABLET PO SCH (10:28)
[2019-07-29] MEDS: THIAMINE HCL 100MG TABLET PO SCH (10:28)
[2019-07-29] MEDS: ENOXAPARIN 60MG/0.6ML SYR SUBCUT SCH ×2 (10:29→21:04)
[2019-07-29] MEDS: FENTANYL CITRATE/PF 1,000 MCG in SODIUM CHLORIDE 0.9% 80 ML IV PRN (17:47)
[2019-07-29] MEDS: PHENYLEPHRINE 80 MG in DEXT 5% WATER 492 ML IV PRN (19:32)
[2019-07-30] VITALS (69 sets, daily range): BP systolic 93–154; BP diastolic 46–96
[2019-07-30] MEDS: PROPOFOL 10MG/ML 100ML 100 ML IV PRN (02:00)
[2019-07-30] MEDS: CEFEPIME 1,000 MG in DEXTROSE 5% WATER 50 ML IV SCH ×2 (02:16→15:02)
[2019-07-30] MEDS: ALBUTEROL 6.7GM HFA INHALER ORI SCH ×4 (04:25→15:54)
[2019-07-30] MEDS: MIDAZOLAM HCL 100 MG in DEXT 5% WATER 80 ML IV PRN (07:19)
[2019-07-30] MEDS: DOCUSATE SODIUM SUGAR FREE 100MG/10ML UDC NG SCH (08:36)
[2019-07-30] MEDS: FOLIC ACID 1MG TABLET PO SCH (08:37)
[2019-07-30] MEDS: THIAMINE HCL 100MG TABLET PO SCH (08:37)
[2019-07-30] MEDS: PANTOPRAZOLE SODIUM 40 MG/VIAL IV SCH (08:37)
[2019-07-30] MEDS: MIDODRINE HCL 5MG TABLET PO SCH ×3 (08:37→17:00)
[2019-07-30] MEDS: ENOXAPARIN 60MG/0.6ML SYR SUBCUT SCH (08:37)
[2019-07-30] MEDS ORDERED: SODIUM CHLORIDE 0.9% 500 ML IV ONE (10:00)
[2019-07-30 10:08] LABS: BG BASE EXCESS 1.3 mmol/L (-2.0-2.0); BG CARBOXYHEMOGLOBIN 0.8 % (0.5-1.5); BG FRACTION INSPIRED OXYGEN 60; BG HCO3 ACT 24.9 mmol/L (22.0-26.0); BG METHEMOGLOBIN 0.3 % (0.0-1.5); BG OXYHEMOGLOBIN 95.9 % (94.0-97.0); BG PH 7.457 (7.350-7.450); BG PO2 90.6 mmHg (75.0-100.0); BG SAMPLE SITE RIGHT RADIAL; BG TIDAL VOLUME(mL) 450 mL; BG VENT MODE VENT- PRVC; BG VENT RATE 24 set
[2019-07-30 11:52] LABS: HEMATOCRIT. 41.6 % (42.0-52.0); HEMOGLOBIN. 13.8 g/dL (14.0-18.0); MEAN CORPUSCULAR HEMOGLOBIN 31.6 pg (28.0-32.0); MEAN CORPUSCULAR VOLUME 95.1 fL (80.0-94.0); MEAN PLATELET VOLUME 10.2 fl (7.4-10.4); PLATELET 319 x1000/uL (130-400); RED BLOOD CELL COUNT 4.37 mill/uL (4.7-6.1); RED CELL DISTRIBUTION WIDTH 14.6 % (11.6-14.6)
[2019-07-30 11:56] LABS: CHLORIDE 99 mEq/L (98-107)
[2019-07-30 12:24] LABS: PLATELET ESTIMATE NORMAL
[2019-07-30] MEDS ORDERED: DIGOXIN 500MCG/2ML AMP IV NR ×2 (15:00)
[2019-07-30] MEDS ORDERED: PROPOFOL 10MG/ML 100ML 100 ML IV PRN (18:45)
[2019-07-30] MEDS ORDERED: DIGOXIN 500MCG/2ML AMP IV PRN (19:00)
[2019-07-30] MEDS ORDERED: DIGOXIN 500MCG/2ML AMP ONE (19:14)
[2019-07-30] MEDS ORDERED: FLUCONAZOLE 400MG/200ML BAG 200 ML IV SCH (20:00)
[2019-07-30] MEDS: ACETAMINOPHEN 650MG/20.3ML UDC GT PRN (20:08)
[2019-07-31] MEDS: MIDAZOLAM HCL 100 MG in DEXT 5% WATER 80 ML IV PRN (01:52)
[2019-07-31] MEDS: PHENYLEPHRINE 80 MG in DEXT 5% WATER 492 ML IV PRN (02:26)
[2019-07-31] MEDS: ACETAMINOPHEN 650MG/20.3ML UDC GT PRN (02:28)
[2019-07-31] MEDS ORDERED: AMIODARONE HCL 900 MG in DEXT 5% WATER 482 ML IV PRN (03:15)
[2019-07-31] MEDS ORDERED: AMIODARONE HCL 150 MG in DEXT 5% WATER 100 ML IV NR (03:30)
[2019-07-31 04:27] VITALS: BP 72/48
[2019-07-31] MEDS ORDERED: EPINEPHRINE 0.1MG/ML (1:10,000) 10ML SYR ONE (05:08)
[2019-07-31] MEDS ORDERED: SODIUM BICARBONATE 8.4% MEQ/ML 50ML VIAL IV ONE (05:08)
[2019-07-31] MEDS ORDERED: CALCIUM CHLORIDE 1GM/10ML SYR IV ONE (05:08)
== END 2019-07-31 05:08 | disposition expired | DRG 720 ==
LOC: ER 09:31 → MICUSO 11:28 → EDBEDREQSVC 11:30 → EDBEDREQ 11:30 → 7WST 15:42 → MICUSO 07-12 01:59 → 7WST 07-12 20:00 → MICUSO 07-14 01:05
PROVIDERS: ADMIT Family Medicine; ATTEND Family Medicine
PROC: 30233P1 Transfusion of Nonautologous Frozen Red Cells into Peripheral Vein, Percutaneous Approach (ICD-10-PCS; 2019-07-18)
PROC: 5A1955Z Respiratory Ventilation, Greater than 96 Consecutive Hours (ICD-10-PCS; principal; 2019-07-24)
PROC: 0BH17EZ Insertion of Endotracheal Airway into Trachea, Via Natural or Artificial Opening (ICD-10-PCS; 2019-07-24)
PROC: 05HY33Z Insertion of Infusion Device into Upper Vein, Percutaneous Approach (ICD-10-PCS; 2019-07-24)
PROC: B54MZZA Ultrasonography of Right Upper Extremity Veins, Guidance (ICD-10-PCS; 2019-07-24)
PROC: 5A12012 Performance of Cardiac Output, Single, Manual (ICD-10-PCS; 2019-07-31)
DX: A41.89 Other specified sepsis (principal); U07.1 COVID-19; J96.01 Acute respiratory failure with hypoxia; E43 Unspecified severe protein-calorie malnutrition; J12.89 Other viral pneumonia; R65.21 Severe sepsis with septic shock; E87.1 Hypo-osmolality and hyponatremia; E11.9 Type 2 diabetes mellitus without complications; J20.8 Acute bronchitis due to other specified organisms; R74.8 Abnormal levels of other serum enzymes; E87.8 Other disorders of electrolyte and fluid balance, not elsewhere classified; F15.90 Other stimulant use, unspecified, uncomplicated; R04.0 Epistaxis; Z99.11 Dependence on respirator [ventilator] status; Z72.89 Other problems related to lifestyle
CPT/HCPCS: 36415; 36600; 71045; 74018; 76937; 80048; 80053; 80061; 80202; 80305; 81003; 82375; 82550; 82728; 82805; 82962; 83605; 83615; 83735; 84100; 84145; 84478; 84484; 85025; 85379; 85384; 86140; 86850; 86900; 86927; 87804; 93005; 94640; 99291; C1725; C1769; C9113; J0282; J0692; J0696; J1160; J1200; J1450; J1650; J1956; J2060; J2250; J2270; J2370; J2543; J2704; J2920; J3010; J3370; J3475; J3480; J3490; J7050; J7060; P9017; Q9957; U0003-CS